=== PATIENT | male | born 1955 | race Caucasian/White ===

== ENCOUNTER 2020-08-21 12:02 | Emergency (ER) | payer MEDICARE ==
[~2020-08-21] VITALS: Ht 188 cm; Wt 90.9 kg
[2020-08-21 12:14] VITALS: Ht 188 cm; Wt 90.9 kg
[2020-08-21 12:51] LABS: BASOPHILS 0.2 % (0-2); EOSINOPHILS 0.5 % (0-7); HEMATOCRIT 40.5 % (42.0-54.0); HEMOGLOBIN 13.8 g/dL (13.5-17.5); IMMATURE GRANULOCYTES 0.3 % (0-5); LYMPHOCYTE ABS# 1.57 10x3/uL (1.32-3.57); LYMPHOCYTES 13.5 % (15-50); MCHC 34.1 g/dL (31.0-37.0); MCV 85.1 fL (80.0-100.0); MEAN PLATELET VOLUME 10.6 fL (7.4-10.4); MONOCYTES 7.9 % (2-11); NEUTROPHIL ABS# 9.04 10x3/uL (1.78-5.38); NEUTROPHILS 77.6 % (40-80); PLATELET COUNT 160 10x3/uL (130-400); RBC 4.76 10x6/uL (4.20-6.10); RDW 14.1 % (11.5-14.5); WBC 11.6 10x3/uL (4.8-10.8)
[2020-08-21 13:00] LABS: CALC OSMOLALITY 293 mosm/kg (275-300); CALCIUM 8.9 mg/dL (8.5-10.1); CARBON DIOXIDE 29.2 mmol/L (21.0-32.0); CHLORIDE - SERUM 107 mmol/L (98-107); CREATININE - SERUM 0.9 mg/dL (0.6-1.3); GLUCOSE 160 mg/dL (74-106); POTASSIUM - SERUM 3.9 mmol/L (3.5-5.1); SODIUM 144 mmol/L (136-145); UREA NITROGEN 23 mg/dL (7-18); eGFR NON AFRICAN AMERICAN 89 mL/min (90-120)
[2020-08-21] MEDS ORDERED: ZOFRAN4 MG PO (13:24)
[2020-08-21 14:41] VITALS: BP 137/70
[2020-08-21] MEDS ORDERED: GLIMEPIRIDE2 MG PO (14:42)
[2020-08-21] MEDS ORDERED: PLAVIX75 MG PO (14:42)
[2020-08-21] MEDS ORDERED: LEVEMIR IN100 UNITS/ SC (14:43)
[2020-08-21] MEDS ORDERED: HYDROCHLOROTHIA25 MG PO (14:43)
[2020-08-21] MEDS ORDERED: OMEPRAZOLE40 MG PO (14:44)
[2020-08-21] MEDS ORDERED: VIC-FORTE CAPSUL1 MG PO (14:44)
[2020-08-21] MEDS ORDERED: CLARITIN 10 MG10 MG PO (14:44)
[2020-08-21] MEDS ORDERED: ZOCOR10 MG PO (14:45)
[2020-08-21] MEDS ORDERED: HEALTHYLAX17 GM PO (14:45)
[2020-08-21] MEDS ORDERED: K-TAB10 MEQ PO (14:45)
[2020-08-21] MEDS ORDERED: KLONOPIN0.5 MG PO (14:46)
[2020-08-21] MEDS ORDERED: ULTRAM50 MG PO (14:46)
[2020-08-21] MEDS ORDERED: DEPAKOTE SPRIN125 MG PO ×2 (14:47)
[2020-08-21] MEDS ORDERED: TRAZODONE HCL100 MG PO (14:48)
== END 2020-08-21 14:41 | disposition home or self-care (01) ==
LOC: D.ER 12:02 → EDBD 12:02 → D.ER 14:41
PROVIDERS: Emergency Medicine
DX: R11.10 Vomiting, unspecified (principal); E11.9 Type 2 diabetes mellitus without complications; K21.9 Gastro-esophageal reflux disease without esophagitis; F03.90 Unspecified dementia, unspecified severity, without behavioral disturbance, psychotic disturbance, mood disturbance, and anxiety; Z66 Do not resuscitate